=== PATIENT | male | born 1980 | race Caucasian/White ===

== ENCOUNTER 2016-12-03 09:38 | Emergency (ER) | payer OTHER ==
[~2016-12-03] VITALS: Ht 185.4 cm; Wt 101.2 kg
[~2016-12-03 09:38] MED LIST: ASPI81TA28 PO; LORA-741 PO; PEDICHW50 PO
[2016-12-03 09:40] VITALS: TEMP 36; Ht 185.4 cm; Wt 101.2 kg
--- NOTE | 2016-12-03 10:27 | EMERGENCY ROOM VISIT NOTE ---
History Report prepared by Alejandro: Shell Reid Under the Supervision of: Dr. Geena Rawls D.O. First contact with patient: 09:58 Chief Complaint: ANXIETY Stated Complaint: NEAR SYNCOPE History of Present Illness The patient is a 36 year old male who presents to the Emergency Room with complaints of sudden near syncope that occurred approximately 1 hour and 45 minutes prior to arrival. 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 He additionally associated dizziness, tingling, confused, and left sided weakness and shakiness. The patient states that he noticed his heart began racing, so he took .25 mg of Ativan. He states that he waited 30 minutes and his heart rate was approximately 120 beats per minute. The patient notes slight abdominal distension. He denies the change of position worsening his lightheadedness. The patient states that when he was leaving the class he felt that he was going to lose his consciousness, so he came to the emergency department for further evaluation. He states that he has history of anxiety attacks, but states that after taking Ativan, his symptoms subside within 15 minutes. The patient states that his symptoms today feel different than his typical anxiety attacks. He states that he typically has breathing difficulties and whole body weakness and shakiness. The patient denies any change in medication, exercise, or amount of caffeine used. He states that he has been eating healthier. The patient states that he takes the Ativan as needed, noting that he typically uses 1-2 per month. He notes that in the past he has had PVCs, noting that he saw a intern retail. The patient denies any other arrhythmias found. He notes a family history of heart disease, noting that several of his family members have had cardiac catheterizations and valve problems. The patient denies any tobacco use. The patient denies any chest pain. Source of History: patient Onset: 1 hour and 45 minutes prior to arrival Position: other (global) Quality: other (near syncope) Timing: other (sudden) Associated Symptoms: + weakness (left side), No chest pain Note: Associated Symptoms: lightheadedness, dizziness, tingling, confusion, left sided shakiness, increased heart rate Review of Systems See HPI for pertinent positives & negatives. A total of 10 systems reviewed and were otherwise negative. Past Medical & Surgical Medical Problems: (1) Cholecystectomy (2) History of lumbar laminectomy for decompression of spinal cord (3) HX-THROMBOPHLEBITIS (4) Panic disorder Family History Diabetes mellitus FHx: gallbladder disease Hypertension Social History Smoking Status: Never Smoker Alcohol Use: none Drug Use: none Marital Status: in relationship Housing Status: lives with family Occupation Status: employed Current/Historical Medications Scheduled PRN Lorazepam (Ativan), 0.5 MG PO TID PRN for Anxiety Allergies Coded Allergies: No Known Allergies (Verified , 12/03/16) Physical Exam Vital Signs Date Time Temp Pulse Resp B/P Pulse Ox O2 Delivery O2 Flow Rate FiO2 12/03/16 14:37 74 18 126/80 98 12/03/16 11:32 74 18 120/74 98 Room Air 12/03/16 10:14 77 12/03/16 09:40 36.0 80 22 148/94 100 Room Air Physical Exam GENERAL: alert, well appearing, well nourished, no distress, non-toxic EYE EXAM: normal conjunctiva, PERRL and EOM's grossly intact OROPHARYNX: no exudate, no erythema, lips, buccal mucosa, and tongue normal and mucous membranes are moist NECK: supple, no nuchal rigidity, no adenopathy, non-tender LUNGS: Clear to auscultation. Normal chest wall mechanics HEART: no murmurs, S1 normal and S2 normal ABDOMEN: abdomen soft, non-tender, normo-active bowel sounds, no masses, no rebound or guarding. BACK: Back is symmetrical on inspection and there is no deformity, no midline tenderness, no CVA tenderness. SKIN: no rashes and no bruising UPPER EXTREMITIES: upper extremities are grossly normal. LOWER EXTREMITIES: No pitting edema. NEURO EXAM: Normal sensorium, cranial nerves II-XII grossly intact, normal speech, no gross weakness of arms, no gross weakness of legs. No drift. Finger to nose intact. Gross sensation intact. Medical Decision & Procedures ER Provider Diagnostic Interpretation: CT:Per my review, radiologist interpretation. HEAD CT NONCONTRAST CT DOSE: 614.27 mGy.cm HISTORY: Mental status change dizziness, near syncope, left arm shaking TECHNIQUE: Multiaxial CT images of the head were performed without the use of intravenous contrast. Comparison: None. Findings: Mild mucosal thickening of the ethmoid and maxillary sinuses. The calvarium and skull base are intact. The ventricles and sulci are within normal limits. There is no mass, hematoma, midline shift, or acute infarct. Impression: No acute intracranial abnormality. Mild mucosal thickening of the ethmoid and to a lesser extent maxillary sinuses Electronically signed by: Dominik Livingston M.D. 12/03/2016 10:58 AM Dictated Date/Time: 12/03/2016 10:56 AM Laboratory Results 12/03/16 10:40 12/03/16 10:40 Test 12/03/16 10:35 12/03/16 10:40 12/03/16 13:40 Urine Opiates Screen NEG (NEG) Urine Methadone, Qualitative NEG (NEG) Urine Barbiturates NEG (NEG) Urine Phencyclidine (PCP) Level NEG (NEG) Ur Amphetamine/Methamphetamine NEG (NEG) MDMA (Ecstasy) Screen NEG (NEG) Urine Benzodiazepines Screen NEG (NEG) Urine Cocaine Metabolite NEG (NEG) Urine Marijuana (THC) NEG (NEG) Red Blood Count 4.82 M/uL (4.7-6.1) Mean Corpuscular Volume 87.3 fL (80-100) Mean Corpuscular Hemoglobin 31.7 pg (25-34) Mean Corpuscular Hemoglobin Concent 36.3 g/dl (32-36) RDW Standard Deviation 39.3 fL (36.4-46.3) RDW Coefficient of Variation 12.2 % (11.5-14.5) Mean Platelet Volume 10.2 fL (7.4-10.4) Anion Gap 8.0 mmol/L (3-11) Est Creatinine Clear Calc Drug Dose 156.6 ml/min Estimated GFR () 131.3 Estimated GFR (Non- 113.3 BUN/Creatinine Ratio 20.6 (10-20) Calcium Level 8.9 mg/dl (8.5-10.1) Magnesium Level 2.2 mg/dl (1.8-2.4) Thyroid Stimulating Hormone (TSH) 0.764 uIu/ml (0.300-4.500) Troponin I < 0.015 ng/ml (0-0.045) Laboratory results per my review. ECG Indication: weakness, syncope, other (anxiety) Rate (beats per minute): 68 Rhythm: sinus rhythm Findings: T-wave inversion (lead 3), other (normal axis, normal intervals) ED Course 1009: The patient was evaluated in room B4B. A complete history and physical examination was performed. 1123: I reevaluated the patient and he is doing well. 1245: I reevaluated the patient at this time and updated him on his exam findings. 1433: Upon reevaluation, the patient is resting comfortably.I discussed my findings with the patient and he understands and agrees with the treatment plan. Based on the patients age, coexisting illnesses, exam and lab findings the decision to treat as an outpatient was made. The patient remained stable while under my care. The patient appeared well at the time of discharge. Medical Decision The patient is a 36 year old male who presents to the ED with complaints of a near syncopal episode. Patient well-appearing despite complaints. Doubt ACS, dysrhythmia, PE can be ruled out with perc criteria, dissection, tamponade, CVA , bacteremia/sepsis, subarachnoid hemorrhage, cerebellar infarct/bleed/mass, increased ICP. Patient's no current episodes while in the emergency room, vital signs stable throughout. Discussed with patient close follow-up with family doctor, symptoms to watch and return for, he verbalized understanding was agreeable to plan. Impression Primary Impression: Anxiety Additional Impressions: Palpitations Dizziness Scribe Attestation The scribe's documentation has been prepared under my direction and personally reviewed by me in its entirety. I confirm that the note above accurately reflects all work, treatment, procedures, and medical decision making performed by me. Departure Information Dispostion Home / Self-Care Referrals Gerardo Adames MD (PCP) Forms HOME CARE DOCUMENTATION FORM, IMPORTANT VISIT INFORMATION Patient Instructions My [facility] Additional Instructions Please rest today and call and schedule a follow-up appointment with her family doctor within the next 48 hours. Please continue to monitor for any recurrence of the atypical symptoms he had today or any other new and concerning symptoms. If this happens, please return the emergency room. He may continue using your Ativan as needed for anxiety, however if he develops symptoms that are not consistent with her prior anxiety attacks, please return to the emergency room. Problem Qualifiers
--- NOTE | 2016-12-03 10:59 | DIAGNOSTIC IMAGING REPORT ---
HEAD CT NONCONTRAST CT DOSE: 614.27 mGy.cm HISTORY: Mental status change dizziness, near syncope, left arm shaking TECHNIQUE: Multiaxial CT images of the head were performed without the use of intravenous contrast. Comparison: None. Findings: Mild mucosal thickening of the ethmoid and maxillary sinuses. The calvarium and skull base are intact. The ventricles and sulci are within normal limits. There is no mass, hematoma, midline shift, or acute infarct. Impression: No acute intracranial abnormality. Mild mucosal thickening of the ethmoid and to a lesser extent maxillary sinuses Electronically signed by: oDminik Livingston M.D. 12/03/2016 10:58 AM Dictated Date/Time: 12/03/2016 10:56 AM
[2016-12-03 11:05] LABS: HEMATOCRIT 42.1 % (42-52); MEAN CELL VOLUME 87.3 fL (80-100); MEAN CORPUSCULAR HEMOGLOBIN 31.7 pg (25-34); MEAN CORPUSCULAR HGB CONC 36.3 g/dl (32-36); MEAN PLATELET VOLUME 10.2 fL (7.4-10.4); PLATELET COUNT 206 K/uL (130-400); RED BLOOD COUNT 4.82 M/uL (4.7-6.1); WHITE BLOOD COUNT 6.69 K/uL (4.8-10.8)
[2016-12-03 11:19] LABS: BENZODIAZEPINE, URINE NEG (NEG); COCAINE,URINE NEG (NEG); PHENCYCLIDINE, URINE NEG (NEG)
[2016-12-03 11:23] LABS: BLOOD UREA NITROGEN 17 mg/dl (7-18); BUN/CREATININE RATIO 20.6 (10-20); CALCIUM 8.9 mg/dl (8.5-10.1); CARBON DIOXIDE 26 mmol/L (21-32); CHLORIDE 106 mmol/L (98-107); GLUCOSE 104 mg/dl (70-99); MAGNESIUM 2.2 mg/dl (1.8-2.4); POTASSIUM 3.7 mmol/L (3.5-5.1); SODIUM 140 mmol/L (136-145)
[2016-12-03 11:33] LABS: THYROID STIMULATING HORMONE 0.764 uIu/ml (0.300-4.500)
[2016-12-03 14:37] VITALS: BP 126/80; PULSE 74; O2SAT 98
== END 2016-12-03 14:38 | disposition home or self-care (01) ==
LOC: C.EDB 09:39
DX: R55 Syncope and collapse (principal); F41.9 Anxiety disorder, unspecified; R00.2 Palpitations; R42 Dizziness and giddiness; Z90.49 Acquired absence of other specified parts of digestive tract; Z98.890 Other specified postprocedural states; Z83.3 Family history of diabetes mellitus; Z83.79 Family history of other diseases of the digestive system; Z82.49 Family history of ischemic heart disease and other diseases of the circulatory system

== ENCOUNTER → 2017-01-26 | Outpatient (CLI) | payer OTHER ==
[~2017-01-26] MED LIST changes: -ASPI81TA28 PO; +GADAVIST IV PRN; -PEDICHW50 PO
--- NOTE | 2017-01-26 20:15 | DIAGNOSTIC IMAGING REPORT ---
MRI OF THE BRAIN WITHOUT AND WITH IV CONTRAST SEIZURE PROTOCOL CLINICAL HISTORY: Dizziness, headache and extremity numbness. COMPARISON STUDY: MRI the brain July 29, [address] December 03, 2016. TECHNIQUE: Utilizing a 1.5 Mena magnet and dedicated coil, multiplanar, multiecho imaging of the brain was performed pre and postcontrast administration. IV administration of 9.5 mL of Gadavist contrast was uneventful. Thin cut coronal T2 imaging was performed according to seizure protocol. FINDINGS: There are no areas of restricted diffusion. No acute intracranial hemorrhage is present. A 3.3 x 2.7 cm CSF signal intensity abnormality along the posterior aspect of the right cerebellar hemisphere is unchanged since MRI of July 29, 2013. This suggests an arachnoid cyst. No additional intracranial masses are present. Ventricular system is normal. Basilar cisterns are patent. Flow-voids for the major intracranial vessels are present. There is no pathologic enhancement. There is moderate mucosal thickening of the ethmoid and sphenoid sinuses. Calvarial signal is normal. A few small white matter T2 hyperintense foci are unchanged since exam July 29, 2013. No new areas of signal abnormality are present. IMPRESSION: 1. No acute intracranial findings. No change in appearance of the brain since MRI of July 29, 2013. 2. Paranasal sinus mucosal thickening and a left maxillary sinus mucous retention cyst which appears similar to prior MRI. Electronically signed by: Oumar Tsang M.D. 01/26/2017 8:14 PM Dictated Date/Time: 01/26/2017 8:07 PM
== END | disposition home or self-care (01) ==
LOC: C.MRI 18:47
PROVIDERS: ATTEND Internal Medicine
DX: R00.2 Palpitations (principal); R42 Dizziness and giddiness; G93.0 Cerebral cysts

== ENCOUNTER → 2017-04-22 | Outpatient (CLI) | payer OTHER ==
[~2017-04-22] MED LIST changes: -GADAVIST IV PRN
[2017-04-28 00:38] LABS: IGA SERUM 322 mg/dL (81-463); TIS TRANS IGA 1 U/mL (<4)
== END | disposition home or self-care (01) ==
LOC: C.LAB 11:55
PROVIDERS: ATTEND Internal Medicine
DX: R14.0 Abdominal distension (gaseous) (principal); R00.2 Palpitations; R23.2 Flushing; E29.1 Testicular hypofunction; Z11.4 Encounter for screening for human immunodeficiency virus [HIV]

== ENCOUNTER → 2017-04-24 | Outpatient (CLI) | payer OTHER ==
[2017-04-29 12:33] LABS: 5-HIAA 3.4 mg/24 h (<=6.0); CALC TOTAL (E+NE) 58 mcg/24 h (26-121); METANEPHRINE 116 mcg/24 h (36-190); NOREPINEPHRINE UR 58 mcg/24 h (15-100); NORMETANEPHRINE UR 236 mcg/24 h (35-482); TOTAL METANEPHRINE 352 mcg/24 h (115-695)
--- NOTE | 2017-06-16 10:20 | CODING QUERY MEDICAL NECESSITY ---
CQSUPPORTING DIAGNOSIS NEEDED A supporting diagnosis is required for the test/procedure performed on this patient in order for us to be reimbursed by the patient's insurance. Please provide a supporting diagnosis for the following test/procedure listed below next to the test name along with your signature. *If there is no additional diagnosis for this patient that would support the following test/procedure please document that below next to the test/procedure. Test(s)/Procedure(s) that require a supporting diagnosis: DOS 04/24/17 CREATINE 24 HOUR URINE METANEPHRINES URINE Provider Signature: Date: Thank you Valerie Herring Health Information Management Once completed, please kindly fax back to [phone] For questions please call [phone]
== END | disposition home or self-care (01) ==
LOC: C.LABSPEC 09:00
PROVIDERS: ATTEND Internal Medicine
DX: R23.2 Flushing (principal); R00.2 Palpitations

== ENCOUNTER → 2017-12-08 | Outpatient (CLI) | payer OTHER ==
[~2017-12-08] MED LIST changes: +OPTIRAY 320 IV PRN
--- NOTE | 2017-12-08 15:03 | DIAGNOSTIC IMAGING REPORT ---
ABDOMEN AND PELVIS CT WITH IV AND ORAL CONTRAST CT DOSE: 696.26 mGy.cm HISTORY: Right upper quadrant pain. TECHNIQUE: Multiaxial CT images of the abdomen and pelvis were performed following the use of intravenous and oral contrast. A dose lowering technique was utilized adhering to the principles of ALARA. COMPARISON STUDY: Abdomen and pelvis CT 03/17/2012. Abdominal ultrasound 06/05/2016. FINDINGS: The lung bases are clear. No pneumoperitoneum. No pneumatosis. No fractures within the visualized osseous structures. Cholecystectomy. The spleen, adrenal glands, and pancreas are unremarkable. Stable 1.5 cm hypodense lesion within the upper pole the left kidney. This likely represents a cyst given the long-term stability. Mild fullness within the bilateral renal collecting systems without anatoly hydronephrosis. The right kidney enhances normally. No ureteral calculi. Normal bladder. No retroperitoneal lymphadenopathy. No pelvic free fluid. No bowel wall thickening or obstruction. Normal appendix. Stable 4 mm hypodense lesion within the anterior segment of the right hepatic lobe. This also favors a small cyst. IMPRESSION: 1. No bowel wall thickening or obstruction. 2. Normal appendix. 3. Mild fullness within the bilateral renal collecting systems without anatoly hydronephrosis. Electronically signed by: Pal Martinez M.D. 12/08/2017 3:02 PM Dictated Date/Time: 12/08/2017 2:42 PM
== END | disposition home or self-care (01) ==
LOC: C.CTS 12:21
PROVIDERS: ATTEND Internal Medicine
DX: R10.11 Right upper quadrant pain (principal); R23.2 Flushing